=== PATIENT | female | born 1940 | race Caucasian/White ===

== ENCOUNTER → 2020-07-02 14:24 | Outpatient (CLI) | payer MEDICARE, SELFPAY ==
--- NOTE | 2020-07-02 14:35 | RAD_ITS ---
STUDY: X-RAY - RIGHT KNEE REASON FOR EXAM: Female, 80 years old. CHRONIC PAIN, NKI TECHNIQUE: 4 view(s) of the knee. COMPARISON: None. FINDINGS: Normal visualized distal femur. Normal visualized proximal tibia and fibula. Normal proximal tibiofibular articulation. Asymmetric degenerative narrowing with severe degenerative narrowing of the lateral compartment with marginal osteophytosis. No substantial narrowing of the medial compartment. Except that Normal patellofemoral articulation. The soft tissue structures are unremarkable. 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 Negative for fracture, osteolytic or blastic bone lesion. Electronically Signed: Robyn Powers MD at 15:55 EDT , Service support ,
--- NOTE | 2020-07-02 14:35 | RAD_ITS ---
STUDY: X-RAY - LEFT KNEE REASON FOR EXAM: Female, 80 years old. CHRONIC PAIN, NKI TECHNIQUE: 4 view(s) of the knee. COMPARISON: Right knee exams of the same day. FINDINGS: Normal visualized distal femur. Normal visualized proximal tibia and fibula. Normal proximal tibiofibular articulation. Asymmetric degenerative narrowing and marginal osteophytosis of the lateral compartment of the knee. Minimal degenerative changes of the medial compartment. Normal patellofemoral articulation. The soft tissue structures are unremarkable. RAD/Knee 4 or More Views IMPRESSION: Asymmetric degenerative narrowing of the lateral compartment of the knee resulting in a genuine valgus deformity. On [id number] comparison to the right knee, the degree of genu valgus is symmetric. Electronically Signed: Robyn Powers MD at 15:58 EDT , Service support ,
== END ==
PROVIDERS: PCP Internal Medicine Infectious Disease; Referring Provider Anesthesiology Pain Medicine; Visit Provider Anesthesiology Pain Medicine
DX: M25.561 Pain in right knee (principal); M25.562 Pain in left knee
CPT/HCPCS: 73564

== ENCOUNTER 2021-10-28 13:09 | Outpatient (CLI) | payer MEDICARE, SELFPAY ==
--- NOTE | 2021-10-28 13:14 | RAD_ITS ---
STUDY: X-RAY - CERVICAL SPINE REASON FOR EXAM: Female, 81 years old. There is degeneration of the cervical spine. TECHNIQUE: 3 view(s) of the cervical spine were obtained. COMPARISON: None FINDINGS: There are degenerative changes of the anterior atlantoaxial articulation. Normal odontoid process. There is straightening of the normal cervical lordosis. There is multi-level endplate spondylosis. There is multi-level degenerative disc disease with multilevel disc space narrowing. Findings are most marked in the lower cervical spine. There is no evidence of acute fracture or loss of vertebral axial height. There is maintenance of normal alignment. There is diffuse degenerative facet disease. The soft tissue structures are unremarkable. RAD/Cerv Spine 2 or 3 Views IMPRESSION: Degenerative changes of the cervical spine. There is no obvious fracture or subluxation. Electronically Signed: Kris Meneses DO at 17:10 EST ,
== END 2021-10-28 23:59 | disposition home or self-care (01) ==
PROVIDERS: PCP Internal Medicine Infectious Disease; Referring Provider Anesthesiology Pain Medicine; Visit Provider Anesthesiology Pain Medicine
DX: M50.30 Other cervical disc degeneration, unspecified cervical region (principal); M47.812 Spondylosis without myelopathy or radiculopathy, cervical region
CPT/HCPCS: 72040